=== PATIENT | male | born 1980 | race Caucasian/White ===

== ENCOUNTER 2016-06-07 03:08 | Emergency (ER) | payer BC ==
[~2016-06-07] VITALS: Wt 85.0 kg
[~2016-06-07 03:08] MED LIST: FENO145T25 PO; LISI-523 PO; METF500T4 PO; PIOG30TA2 PO; SIMV5TAB50 PO
--- NOTE | 2016-06-07 04:37 | ERD ---
ER Documentation Chief Complaint Date/Time DATE: 06/07/16 TIME: 04:31 Chief Complaint sore throat 2 weeks HPI 36-year-old male presents here in emergency department for complaints of cough for 1 month now, sore throat for 2 weeks. Patient is complaining of postnasal drip. Patient's complains of irritation in the throat. Patient has been having dry cough, patient did not take any medications up with symptoms. Patient is complaining of sore throat, burning pain, 4/10 scale, is worse upon swallowing. Patient denies any sick contacts. Patient denies any chest pain or palpitations. Patient denies any dyspnea on exertion or dyspnea on lying down. Patient denies any wheezing ROS All systems reviewed and are negative except as per history of present illness. Medications Home Meds Active Scripts Pioglitazone Hcl* (Actos*) 30 Mg Tablet, 30 MG PO DAILY for 30 Days, TAB Prov:VICENTE OLIVO NP 04/08/14 Lisinopril* (Zestril*) 5 Mg Tab, 5 MG PO DAILY for 30 Days Prov:VICENTE OLIVO NP 04/08/14 Fenofibrate Nanocrystallized* (Tricor*) 145 Mg Tab, 145 MG PO DAILY for 30 Days Prov:VICENTE OLIVO NP 04/08/14 Simvastatin* (Simvastatin*) 5 Mg Tablet, 10 MG PO HS for 30 Days, TAB Prov:VICENTE OLIVO NP 04/08/14 Metformin* (Glucophage*) 500 Mg Tab, 1000 MG PO WITH BREAKFAST for 30 Days, TAB Prov:VICENTE OLIVO NP 04/08/14 Allergies Allergies: Coded Allergies: No Known Allergies (Verified Allergy, Mild, 04/07/14) PMhx/Soc History of Surgery: No Anesthesia Reaction: No Hx Neurological Disorder: No Hx Respiratory Disorders: No Hx Cardiac Disorders: Yes (HTN, Hyperlipidemia) Hx Psychiatric Problems: No Hx Miscellaneous Medical Probl: Yes (Migraines) Hx Alcohol Use: No Hx Substance Use: No Hx Tobacco Use: No FmHx Family History: No coronary disease, No diabetes, No other Physical Exam Vitals Vital Signs Date Time Temp Pulse Resp B/P Pulse Ox O2 Delivery O2 Flow Rate FiO2 06/07/16 03:16 98.6 90 18 121/61 95 Physical Exam GENERAL: The patient is well developed and appropriate for usual state of health, in no apparent distress. CHEST: Clear to auscultation bilaterally. There are no rales, wheezes or rhonchi. HEART: Regular rate and rhythm. No murmurs, clicks, rubs or gallops. No S3 or S4. ABDOMEN: Soft, nontender and nondistended. Good bowel sounds. No rebound or guarding. No gross peritonitis. No gross organomegaly or masses. No Palmer sign or McBurney point tenderness. BACK: No midline or flank tenderness. EXTREMITIES: Equal pulses bilaterally. There is no peripheral clubbing, cyanosis or edema. No focal swelling or erythema. Full range of motion. Grossly neurovascularly intact. NEURO: Alert and oriented. Cranial nerves 2-12 intact. Motor strength in all 4 extremities with 5/5 strength. Sensation grossly intact. Normal speech and gait. SKIN: There is no apparent rash or petechia. The skin is warm and dry. HEMATOLOGIC AND LYMPHATIC: There is no evidence of excessive bruising or lymphedema. No gross cervical, axillary, or inguinal lymphadenopathy. Results 24 hrs PROCEDURE: CHEST - 1 VIEW CLINICAL INDICATION: 36-year-old male with cough for 1 month. TECHNIQUE: A single frontal AP view of the chest was performed portably. The images were reviewed on a PACS workstation. COMPARISON: Chest x-ray April 07, 2014. FINDINGS: The cardiomediastinal silhouette has a normal appearance. There is no evidence for an infiltrate. There is no evidence for congestive heart failure. There is no evidence for pneumothorax. The osseous structures are intact. IMPRESSION: No evidence for active cardiopulmonary disease. .Reymundo Ledezma MD, MD Date Time Electronically viewed and signed by .Reymundo Ledezma MD, on 06/07/2016 05:04 .M/ CC: WINIFRED SONG [employer] Procedures/MDM Medical Decision Making: Patient symptoms are most likely consistent with chronic cough, possible from nasal drip from allergic rhinitis or acid reflux. The mucosa from atypical chest pain, with this, patient will be given a trial of antibiotics There is low suspicion for Pneumonia at this time since patients lungs sounds are clear, patient O2 saturation is normal and patient doesnt show any respiratory distress. Patients chest xray doesnt show infiltrates or any other cardiopulmonary emergencies at this time. There is low suspicion for other cardiopulmonary emergencies at this time such as CHF, Pulmonary Embolism, Pneumothorax, Aortic Aneurysm or any other cardiopulmonary emergencies at this time. There is low suspicion for sepsis. Patient appears well and is hemodynamically stable. Fever is controlled with medicines. Disposition: Home. Condition: Stable Prescriptions: Zyrtec, Flonase, Tessalon Perle, azithromycin Instructions: Patient is advised to take medications as prescribed. Patient is advised to rest. Patient advised to increase fluid intake, do humidifier at home and if possible, do salt water gargles. Patient is advised that if symptoms are worse, shortness of breath, uncontrolled fever, stridor, vomiting, worst signs and symptoms to return to emergency department immediately. Otherwise, patient is advised to follow up with primary doctor in 5-7 days. Departure Diagnosis: Primary Impression: Chronic cough Condition: Stable Patient Instructions: Cough, Chronic, Uncertain Cause, (Adult) Additional Instructions: Patient is advised to take medications as prescribed. Patient is advised to rest. Patient advised to increase fluid intake, do humidifier at home and if possible, do salt water gargles. Patient is advised that if symptoms are worse, shortness of breath, uncontrolled fever, stridor, vomiting, worst signs and symptoms to return to emergency department immediately. Otherwise, patient is advised to follow up with primary doctor in 5-7 days. WINIFRED SONG NP Jun 07, 2016 04:37
--- NOTE | 2016-06-07 05:04 | RADRPT ---
PROCEDURE: CHEST - 1 VIEW CLINICAL INDICATION: 36-year-old male with cough for 1 month. TECHNIQUE: A single frontal AP view of the chest was performed portably. The images were reviewed on a PACS workstation. COMPARISON: Chest x-ray April 07, 2014. FINDINGS: The cardiomediastinal silhouette has a normal appearance. There is no evidence for an infiltrate. There is no evidence for congestive heart failure. There is no evidence for pneumothorax. The osseou s structures are intact. IMPRESSION: No evidence for active cardiopulmonary disease. .Reymundo Ledezma MD, MD Date Time Electronically viewed and signed by .Reymundo Ledezma MD, on 06/07/2016 05:04 .Clement/
[2016-06-07] MEDS ORDERED: FLUT9.9S NASAL (05:39)
[2016-06-07] MEDS ORDERED: CETI10CA PO (05:39)
[2016-06-07] MEDS ORDERED: BENZ100C70 PO (05:39)
[2016-06-07] MEDS ORDERED: AZIT250T94 PO (05:56)
[2016-06-07 06:03] VITALS: BP 110/70
[2016-06-07 06:04] VITALS: PULSE 76; RESP 20; TEMP 98.7
== END 2016-06-07 06:00 | disposition home or self-care (01) ==
LOC: FTE 03:08
DX: R05 Cough (principal); I10 Essential (primary) hypertension; E11.9 Type 2 diabetes mellitus without complications; Z79.84 Long term (current) use of oral hypoglycemic drugs
CPT/HCPCS: 71010